=== PATIENT | female | born 1965 ===

== ENCOUNTER 2017-05-19 05:55 | Emergency (ER) | payer OTHER ==
--- NOTE | 2017-05-19 06:19 | C.PDOC ---
History Of Present Illness Patient presents to the ER with a complaint of nausea, vomiting and diarrhea. Patient states she went to the bathroom, syncopized, and found herself on the floor. Patient reports having left sided forehead pain and left shoulder pain. Denies vision change, headache or fever. Time Seen by Provider: 05/19/17 06:16 History Per: Patient History/Exam Limitations: no limitations Onset/Duration Of Symptoms: Hrs Current Symptoms Are (Timing): Still Present Severity: Mild Pain Scale Rating Of: 3 Recent travel outside of the [place]: No Past Medical History Reviewed: Historical Data, Nursing Documentation, Vital Signs Vital Signs: Last Vital Signs Temp 98.0 F 05/19/17 06:14 Pulse 102 H 05/19/17 06:14 Resp 18 05/19/17 06:14 BP 142/81 05/19/17 06:14 Pulse Ox 98 05/19/17 06:14 - Medical History PMH: No Chronic Diseases Surgical History: No Surg Hx Family History: States: No Known Family Hx Review Of Systems Constitutional: Negative for: Fever Eyes: Negative for: Vision Change Gastrointestinal: Positive for: Nausea, Vomiting, Diarrhea Musculoskeletal: Positive for: Shoulder Pain (Left), Other (Left forehead pain) Neurological: Negative for: Headache Physical Exam - Physical Exam Appears: Non-toxic Skin: Warm, Dry Head: Tenderness (Left forehead) Oral Mucosa: Moist Chest: Symmetrical, No Tenderness Cardiovascular: Rhythm Regular, No Murmur Respiratory: No Rales, No Rhonchi, No Wheezing Gastrointestinal/Abdominal: Soft, No Tenderness Extremity: Normal ROM (x4), Tenderness (Left shoulder, mild on palpation) Neurological/Psych: Oriented x3 ED Course And Treatment ECG: Interpreted By Me, Viewed By Me ECG Rhythm: Sinus Rhythm (103), Nonspecific Changes O2 Sat by Pulse Oximetry: 98 Pulse Ox Interpretation: Normal Progress Note: Head CT, EKG, blood work and urinalysis ordered. Pepcid, zofran and IV fluids administered. Disposition Counseled Patient/Family Regarding: Studies Performed, Diagnosis - Disposition Disposition Time: 06:19 Condition: UNKNOWN - Clinical Impression Clinical Impression: Abdominal pain, Vaso vagal episode - Scribe Statement The provider has reviewed the documentation as recorded by the Scribileana Patterson All medical record entries made by the Scribe were at my direction and personally dictated by me. I have reviewed the chart and agree that the record accurately reflects my personal performance of the history, physical exam, medical decision making, and the department course for this patient. I have also personally directed, reviewed, and agree with the discharge instructions and disposition. Physician Patient Turnover Patient Signed Over To: Garth Valle DO Handoff Comments: pending labs, ct and disposition
[2017-05-19 06:21] VITALS: BMI 29.6
[2017-05-19] MEDS ORDERED: Sodium Chloride 0.9% 1,000 ML IV ONE (06:21)
[2017-05-19 06:22] VITALS: TEMP 98
[2017-05-19] MEDS ORDERED: Sodium Chloride 0.9% 1,000 ML ONE (06:35)
[2017-05-19 06:44] LABS: BASO # 0.1 K/uL (0.0-0.2); BASO % 0.4 % (0.0-2.0); EOS # 0.1 K/uL (0.0-0.7); EOS % 0.4 % (0.0-4.0); HEMATOCRIT 45.2 % (34.0-47.0); LYMPH # 0.5 K/uL (1.0-4.3); LYMPH % 3.1 % (20.0-40.0); MEAN CELL VOLUME 83.2 fL (81.0-99.0); MEAN CORPUSCULAR HEMOGLOBIN 27.4 pg (27.0-31.0); MEAN CORPUSCULAR HGB CONC 32.9 g/dL (33.0-37.0); MEAN PLATELET VOLUME 9.7 fL (7.2-11.7); MONO # 0.4 K/uL (0.0-0.8); MONO % 2.3 % (0.0-10.0); PLATELET COUNT 252 K/uL (130-400); RED CELL DISTRIBUTION WIDTH 12.8 % (11.5-14.5); WHITE BLOOD COUNT 15.4 K/uL (4.8-10.8)
[2017-05-19 06:51] LABS: CHLORIDE 97 mmol/L (98-107); POTASSIUM 4.3 mmol/L (3.6-5.2); SODIUM 134 mmol/L (132-148)
[2017-05-19 06:53] LABS: ALB/GLOB RATIO 1.2 (1.0-2.1); AST/SGOT 22 U/L (14-36); CARBON DIOXIDE 27 mmol/L (22-30); GFR AFRICAN-AMERICAN > 60; TOTAL PROTEIN 7.3 g/dL (6.3-8.3)
[2017-05-19 06:54] LABS: ALKALINE PHOSPHATASE 94 U/L (38-126); ALT/SGPT 28 U/L (9-52); BLOOD UREA NITROGEN 15 mg/dL (7-17); CALCIUM 8.5 mg/dl (8.6-10.4); GLUCOSE,RANDOM 310 mg/dL (65-105)
[2017-05-19 08:12] VITALS: BP 155/66; PULSE 99; RESP 16; O2SAT 98
[2017-05-19 08:14] LABS: RBC URINE 1 /hpf (0-3); URINE BILIRUBIN NEGATIVE (NEGATIVE); URINE BLOOD NEGATIVE (NEGATIVE); URINE COLOR Yellow (YELLOW); URINE GLUCOSE (UA) 3+ mg/dL (Normal); URINE KETONE TRACE mg/dL (NEGATIVE); URINE LEUKOCYTE ESTERASE NEG Leu/uL (Negative); URINE PROTEIN NEGATIVE (NEGATIVE); URINE UROBILINOGEN NORMAL mg/dL (0.2-1.0); WBC URINE 1 /hpf (0-5)
[2017-05-19 08:30] LABS: NEUTROPHIL 97 % (50-75); TOTAL CELLS COUNTED 100
--- NOTE | 2017-05-19 08:50 | CT ---
PROCEDURE: CT HEAD WITHOUT CONTRAST. HISTORY: syncope, left forehead pain COMPARISON: None available. TECHNIQUE: Axial computed tomography images were obtained through the head/brain without intravenous contrast. Radiation dose: Total exam DLP = 994 mGy-cm. This CT exam was performed using one or more of the following dose reduction techniques: Automated exposure control, adjustment of the mA and/or kV according to patient size, and/or use of iterative reconstruction technique. FINDINGS: HEMORRHAGE: No intracranial hemorrhage. BRAIN: No mass effect or edema. No atrophy or chronic microvascular ischemic changes. Mild nonspecific fullness in the suprasellar cistern. Clinical correlation. VENTRICLES: Unremarkable. No hydrocephalus. CALVARIUM: Unremarkable. PARANASAL SINUSES: Unremarkable as visualized. No significant inflammatory changes. MASTOID AIR CELLS: Unremarkable as visualized. No inflammatory changes. OTHER FINDINGS: None. IMPRESSION: No acute intracranial abnormality. Mild nonspecific fullness in the suprasellar cistern. Clinical correlation. If focal neurologic deficit persists, consider MRI. These findings were preliminarily reported at 6:55 a.m. on 05/19/[address] Ed Bledsoe from [facility].
--- NOTE | 2017-05-20 18:56 | CARD ---
APPROVED REPORT EKG Measurement Heart [id number] HI [id number] <Conclusion> Sinus tachycardia Otherwise normal.
== END 2017-05-19 08:36 | disposition home or self-care (01) ==
LOC: C.ER 05:55
DX: R55 Syncope and collapse (principal); R10.9 Unspecified abdominal pain
CPT/HCPCS: 70450; 80053; 81001; 83690; 84484; 84703; 85025; 85610; 85730; 93005; 96361; 96374; 96375; 99285; J2405; J7040